=== PATIENT | female | born 1990 | race Caucasian/White ===

== ENCOUNTER 2020-03-07 07:27 | Emergency (ER) | payer SELFPAY ==
[2020-03-07] MEDS ORDERED: Sodium Chloride 0.9% 10 ML Syringe FLUSH PRN (07:49)
[2020-03-07] MEDS ORDERED: Sodium Chloride 0.9% 2.5 ML Syringe FLUSH PRN (07:49)
[2020-03-07] MEDS ORDERED: Prochlorperazine 10 MG/2 ML SDV IVPUSH ONE (07:51)
--- NOTE | 2020-03-07 07:58 | EDM.PDOC ---
ED [facility] GENERAL MEDICAL PROBLEM - General Chief Complaint: Abdominal Pain Stated Complaint: ABDOMINAL PAIN, VOMITING BLOOD Time Seen by Provider: 03/07/20 07:29 - History of Present Illness INITIAL COMMENTS - FREE TEXT/NARRATIVE: HISTORY AND PHYSICAL: History of present illness: This 29-year-old female without significant past medical history other than BMI greater than 40 presents to the emergency department with epigastric abdominal pain. She woke this morning suddenly around 6 AM with a sudden need to vomit and has had epigastric pain since then. It is bandlike around the epigastrium and upper quadrants and radiates towards the back. She reports that the vomit has been yellow and may have had some streaks of blood but not coffee-ground or clots. She has been retching very hard. No shortness of breath. No urinary symptoms or vaginal symptoms. She reports that she had her tubal ligation a few years ago and has had 2 sections. No other associated signs or symptoms. No other modifying, aggravating or alleviating factors. Review of systems: A 10-point review of systems, other than pertinent positives and negatives as stated per HPI, is otherwise negative. Past medical history: As per history of present illness and as reviewed below otherwise noncontributory. Surgical history: As per history of present illness and as reviewed below otherwise noncontributory. Social history: No reported history of drug or alcohol abuse. Family history: As per history of present illness and as reviewed below otherwise noncontributory. Physical exam: VITAL SIGNS: Reviewed. GENERAL: Appears very uncomfortable and is complaining of epigastric pain. Very nauseated and holding a vomit bag. HEAD: No signs of head trauma. EYES: Pupils are equal. Extraocular motions intact. EARS: Hearing grossly intact. MOUTH: Oropharynx is normal. NECK: No adenopathy, no JVD. CHEST: Chest with clear breath sounds bilaterally. No wheezes, rales, or rhonchi. CARDIAC: Regular rate and rhythm. Normal S1 and S2, without murmurs, gallops, or rubs. VASCULAR: Peripheral pulses normal and equal in all extremities. ABDOMEN: Soft, tender right upper and epigastric area. No rebound or guarding. No pulsatile masses. MUSCULOSKELETAL: Good range of motion of all major joints. Extremities without clubbing, cyanosis or edema. NEUROLOGIC EXAM: Alert and oriented x 3. No focal sensory or motor deficits. Speech normal. Follows commands. PSYCHIATRIC: Mood normal. SKIN: No rash or lesions. Initial Differential Diagnosis & Plan: The differential diagnosis would include appendicitis, cholecystitis, pyeloneph ritis, pancreatitis, mesenteric infarction, diverticulitis, small bowel obstruction, volvulus, and ACS. I suspect this is cholecystitis or pancreatitis or may be gastroenteritis. The patient has abdominal tenderness especially in epigastric/right upper quadrant area. Her body habitus somewhat limits my ability to completely localize the pain. Not high risk for mesenteric infarct, diverticulitis or bowel obstruction. She has had 2 cesareans but no other abdominal surgeries. Given these findings I will obtain a right upper quadrant ultrasound, give Compazine, and IV hydration. Definitive disposition and diagnosis as appropriate pending reevaluation and review of above. 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: Musculoskeletal History: Reports: None Neurological History: Reports: None Psychiatric History: Reports: None Endocrine/Metabolic History: Reports: None Hematologic History: Reports: None Immunologic History: Reports: None Oncologic (Cancer) History: Reports: None Dermatologic History: Reports: None - Infectious Disease History Infectious Disease History: Reports: None - Past Surgical History Head Surgeries/Procedures: Reports: None HEENT Surgical History: Reports: Tonsillectomy Cardiovascular Surgical History: Reports: None Respiratory Surgical History: Reports: None GI Surgical History: Reports: None Female Surgical History: Reports: Section, Tubal Ligation Endocrine Surgical History: Reports: None Neurological Surgical History: Reports: None Musculoskeletal Surgical History: Reports: None Oncologic Surgical History: Reports: None Dermatological Surgical History: Reports: None Social & Family History - Family History Family Medical History: Noncontributory - Tobacco Use Smoking Status *Q: Current Every Day Smoker Years of Tobacco use: 10 Packs/Tins Daily: 0.7 Second Hand Smoke Exposure: No - Caffeine Use Caffeine Use: Reports: Coffee, Energy Drinks, Soda, Tea - Recreational Drug Use Recreational Drug Use: No ED ROS GENERAL - Review of Systems Review Of Systems: See Below ED EXAM, GI/ABD - Physical Exam Exam: See Below Course - Vital Signs Last Recorded V/S: Last Vital Signs Temp 95.7 F L 03/07/20 07:34 Pulse 88 03/07/20 08:00 Resp 17 03/07/20 08:00 BP 119/73 03/07/20 08:00 Pulse Ox 96 03/07/20 08:00 - Orders/Labs/Meds Orders: Active Orders 24 hr Category Date Time Status Cardiac Monitoring [RC] . DIRECTED Care 03/07/20 07:49 Active Pulse Oximetry [RC] ASDIRECTED Care 03/07/20 07:49 Active Abdomen Ltd [US] Stat Exams 03/07/20 07:50 Taken COMPREHENSIVE METABOLIC PN,CMP [CHEM] Stat Lab 03/07/20 08:16 Received HCG QUALITATIVE,SERUM [CHEM] Stat Lab 03/07/20 08:16 Received LIPASE [CHEM] Stat Lab 03/07/20 08:16 Received UA W/MILA RFLX IF INDICATED [URIN] Stat Lab 03/07/20 07:50 Ordered Sodium Chloride 0.9% [Saline Flush] Med 03/07/20 07:49 Active 10 ml FLUSH ASDIRECTED PRN Sodium Chloride 0.9% [Saline Flush] Med 03/07/20 07:49 Active 2.5 ml FLUSH ASDIRECTED PRN Saline Lock Insert [OM.PC] Stat Oth 03/07/20 07:49 Ordered Medication Orders Sodium Chloride (Saline Flush) 10 ml FLUSH ASDIRECTED PRN PRN Reason: Keep Vein Open Last Admin: 03/07/20 07:56 Dose: 10 ml Documented by: ZOEY Sodium Chloride (Saline Flush) 2.5 ml FLUSH ASDIRECTED PRN PRN Reason: Keep Vein Open Last Admin: 03/07/20 07:56 Dose: 2.5 ml Documented by: ZOEY Labs: Laboratory Tests 03/07/20 Range/Units 07:40 WBC 9.52 (4.0-11.0) K/uL RBC 4.75 (4.30-5.90) M/uL Hgb 14.0 (12.0-16.0) g/dL Hct 42.7 (36.0-46.0) % MCV 89.9 (80.0-98.0) fL MCH 29.5 (27.0-32.0) pg MCHC 32.8 (31.0-37.0) g/dL RDW Std Deviation 41.7 (28.0-62.0) fl RDW Coeff of Komal 13 (11.0-15.0) % Plt Count 328 (150-400) K/uL MPV 10.00 (7.40-12.00) fL Neut % (Auto) 62.2 (48.0-80.0) % Lymph % (Auto) 25.3 (16.0-40.0) % Holmes % (Auto) 9.6 (0.0-15.0) % Eos % (Auto) 2.7 (0.0-7.0) % Baso % (Auto) 0.2 (0.0-1.5) % Neut # (Auto) 5.9 H (1.4-5.7) K/uL Lymph # (Auto) 2.4 (0.6-2.4) K/uL Holmes # (Auto) 0.9 H (0.0-0.8) K/uL Eos # (Auto) 0.3 (0.0-0.7) K/uL Baso # (Auto) 0.0 (0.0-0.1) K/uL Nucleated RBC % 0.0 /100WBC Nucleated RBCs # 0 K/uL Meds: Medications Generic Name Dose Route Start Last Admin Trade Name Freq PRN Reason Stop Dose Admin Sodium Chloride 10 ml 03/07/20 07:49 03/07/20 07:56 Saline Flush FLUSH 10 ml ASDIRECTED PRN Administration Keep Vein Open Sodium Chloride 2.5 ml 03/07/20 07:49 03/07/20 07:56 Saline Flush FLUSH 2.5 ml ASDIRECTED PRN Administration Keep Vein Open Discontinued Medications Generic Name Dose Route Start Last Admin Trade Name Freq PRN Reason Stop Dose Admin Pantoprazole Sodium 80 mg/ 20 mls @ 420 mls/hr 03/07/20 07:59 03/07/20 08:20 Sodium Chloride IVPUSH 03/07/20 08:01 420 mls/hr ONETIME ONE Administration Sodium Chloride Confirm 03/07/20 08:14 03/07/20 08:23 Normal Saline Administered 03/07/20 08:15 Not Given Dose 20 mls @ as directed .ROUTE .STK-MED ONE Morphine Sulfate 4 mg 03/07/20 07:59 03/07/20 08:21 Morphine IVPUSH 03/07/20 08:00 4 mg ONETIME ONE Administration Prochlorperazine Edisylate 10 mg 03/07/20 07:51 03/07/20 07:56 Compazine IVPUSH 03/07/20 07:52 10 mg ONETIME ONE Administration - Re-Assessments/Exams Free Text/Narrative Re-Assessment/Exam: 03/07/20 08:36 Ultrasound appears normal with normal common bile duct and normal gallbladder wall thickness. No pericholecystic fluid. No evidence of stones. Some suggestion of may be some mild sludge. Radiologist is reviewing. If this is normal and the rest of her labs appear normal I feel the patient can be discharged at this time. Diagnostic impression: 1. Epigastric pain/gastritis 2. Nausea and vomiting Home with Zofran and omeprazole. Departure - Departure Time of Disposition: 08:37 Disposition: Home, Self-Care 01 Clinical Impression: Gastritis, Nausea and vomiting, Epigastric abdominal pain, Gallbladder sludge - Discharge Information *PRESCRIPTION DRUG MONITORING PROGRAM REVIEWED*: Not Applicable *COPY OF PRESCRIPTION DRUG MONITORING REPORT IN PATIENT DAYANNA: Not Applicable Prescriptions: Ondansetron [Zofran ODT] 4 mg PO TID PRN #20 tab.dis PRN Reason: Nausea Instructions: Nausea and Vomiting, Adult, Gastritis, Adult, [id number], Gastritis, Adult, Biliary Dyskinesia Referrals: PCP,None [Primary Care Provider] - Forms: ED Department Discharge Additional Instructions: The following information is given to patients seen in the emergency department who are being discharged to home. This information is to outline your options for follow-up care. We provide all patients seen in our emergency department with a follow-up referral. The need for follow-up, as well as the timing and circumstances, are variable depending upon the specifics of your emergency department visit. If you don't have a primary care physician on staff, we will provide you with a referral. We always advise you to contact your personal physician following an emergency department visit to inform them of the circumstance of the visit and for follow-up with them and/or the need for any referrals to a consulting specialist. The emergency department will also refer you to a specialist when appropriate. This referral assures that you have the opportunity for follow-up care with a specialist. All of these measure are taken in an effort to provide you with optimal care, which includes your follow-up. Thank you for coming to the [facility] [place] department for your care today. It was Dr. Morin's pleasure to take care of you. [facility] - [facility] [address] [place] [id number] [facility] [address] [place] [id number] Follow-up with your doctor. Your gallbladder ultrasound shows no evidence of stones or acute biliary infection. We are glad you are feeling better. Please take these medications and return if you have worsening. Under all circumstances we always encourage you to contact your private physician who remains a resource for coordinating your care. When calling for follow-up care, please make the office aware that this follow-up is from your recent emergency room visit. If for any reason you are refused follow-up, please contact the [facility] Emergency Department at and asked to speak to the emergency department charge nurse. Sepsis Event Note (ED) - Evaluation Sepsis Screening Result: No Definite Risk - Focused Exam Vital Signs: Vital Signs Temp Pulse Resp BP Pulse Ox 03/07/20 08:00 88 17 119/73 96 03/07/20 07:34 95.7 F L 112 H 17 173/108 H - My Orders Last 24 Hours: My Active Orders 03/07/20 07:49 Cardiac Monitoring [RC] . DIRECTED Pulse Oximetry [RC] ASDIRECTED Sodium Chloride 0.9% [Saline Flush] 10 ml FLUSH ASDIRECTED PRN Sodium Chloride 0.9% [Saline Flush] 2.5 ml FLUSH ASDIRECTED PRN Saline Lock Insert [OM.PC] Stat 03/07/20 07:50 Abdomen Ltd [US] Stat UA W/MILA RFLX IF INDICATED [URIN] Stat 03/07/20 08:16 COMPREHENSIVE METABOLIC PN,CMP [CHEM] Stat HCG QUALITATIVE,SERUM [CHEM] Stat LIPASE [CHEM] Stat - Assessment/Plan Last 24 Hours: My Active Orders 03/07/20 07:49 Cardiac Monitoring [RC] . DIRECTED Pulse Oximetry [RC] ASDIRECTED Sodium Chloride 0.9% [Saline Flush] 10 ml FLUSH ASDIRECTED PRN Sodium Chloride 0.9% [Saline Flush] 2.5 ml FLUSH ASDIRECTED PRN Saline Lock Insert [OM.PC] Stat 03/07/20 07:50 Abdomen Ltd [US] Stat UA W/MILA RFLX IF INDICATED [URIN] Stat 03/07/20 08:16 COMPREHENSIVE METABOLIC PN,CMP [CHEM] Stat HCG QUALITATIVE,SERUM [CHEM] Stat LIPASE [CHEM] Stat
[2020-03-07] MEDS ORDERED: Pantoprazole 80 MG in Sodium Chloride 0.9% 20 ML IVPUSH ONE (07:59)
[2020-03-07] MEDS ORDERED: Morphine 4 MG/ML Syringe IVPUSH ONE (07:59)
[2020-03-07] MEDS ORDERED: Sodium Chloride 0.9% 20 ML ONE (08:14)
[2020-03-07 08:49] LABS: BLOOD UREA NITROGEN,BUN 15 mg/dL (7.0-18.0); CHLORIDE,CL 103 mmol/L (98-107); GLUCOSE RANDOM 114 mg/dL (74-106); LIPASE 122 U/L (73-393); POTASSIUM,K 3.7 mmol/L (3.5-5.1); SODIUM,NA 138 mmol/L (136-145)
--- NOTE | 2020-03-07 09:01 | US ---
Limited abdominal ultrasound: Multiple real-time images of the upper right abdomen were obtained. Comparison: No previous right upper quadrant abdominal imaging is available. Findings: Liver shows no focal abnormality. Gallbladder shows no shadowing gallstones. No gallbladder wall thickening or biliary duct dilatation is seen. Right kidney shows no hydronephrosis or mass. Right kidney has a length of 11.3 cm. Aorta shows no aneurysm. Visualized portions of the pancreas shows no abnormality. Impression: 1. Nothing acute is seen on right upper quadrant abdominal ultrasound. Diagnostic code #1 This report was dictated in MDT
== END 2020-03-07 09:07 | disposition home or self-care (01) ==
LOC: MW.ED 07:27
DX: K29.70 Gastritis, unspecified, without bleeding (principal); K82.8 Other specified diseases of gallbladder; F17.210 Nicotine dependence, cigarettes, uncomplicated; Z90.89 Acquired absence of other organs; Z98.51 Tubal ligation status
CPT/HCPCS: 76705; 80053; 83690; 84703; 85025; 96374; 96375; 99284; C9113; J0780; J2270; 99283